=== PATIENT | female | born 1990 | race Native Hawaiian/Other Pacific Islander ===

== ENCOUNTER 2020-08-21 08:46 | Outpatient (CLI) | payer BC, OTHER | END 2020-08-21 21:12 | disposition home or self-care (01) | LOC: INF 08:46 | PROVIDERS: ATTEND Internal Medicine | DX: Z23 Encounter for immunization (principal) | CPT/HCPCS: 96372 ==

== ENCOUNTER 2020-09-18 09:22 | Outpatient (CLI) | payer BC, OTHER | END 2020-09-18 19:30 | disposition home or self-care (01) | LOC: INF 09:22 | PROVIDERS: ATTEND Internal Medicine | DX: Z23 Encounter for immunization (principal) | CPT/HCPCS: 96372 ==